=== PATIENT | female | born 1970 | race Caucasian/White ===

== ENCOUNTER 2019-02-19 21:53 | Inpatient (IN) | payer MEDICAID ==
[~2019-02-19] VITALS: Ht 154.9 cm; Wt 90.7 kg
[2019-02-19] MEDS ORDERED: ZANTAC300 MG PO (21:58)
[2019-02-19 22:29] LABS: APPEARANCE CLOUDY (CLEAR); COLOR YELLOW (YELLOW); NITRITE NEGATIVE (NEGATIVE); PROTEIN NEGATIVE (NEGATIVE); SPECIFIC GRAVITY 1.005 (1.005-1.020)
[2019-02-19 22:30] LABS: BILIRUBIN NEGATIVE (NEGATIVE); GLUCOSE 500 mg/dL (NEGATIVE); KETONE NEGATIVE (NEGATIVE); UROBILINOGEN NORMAL (NORMAL)
[2019-02-19 22:31] LABS: BACTERIA MODERATE /hpf (NONE SEEN); EPITHELIAL CELLS 0-5 /hpf (0-5); WHITE CELLS - URINE >50 /hpf (0-5)
[2019-02-19 22:33] LABS: HEMATOCRIT 40.9 % (36.0-48.0); HEMOGLOBIN 14.5 g/dL (12-16); LYMPHOCYTES 14.4 % (15-50); MCH 30.4 pg (26.0-34.0); MCHC 35.5 g/dL (31.0-37.0); MCV 85.7 fL (80.0-100.0); MEAN PLATELET VOLUME 10.8 fL (7.4-10.4); NEUTROPHILS 74.9 % (40-80); PLATELET COUNT 217 10x3/uL (130-400); RBC 4.77 10x6/uL (4.00-5.40); RDW 12.2 % (11.5-14.5); WBC 7.4 10x3/uL (4.8-10.8)
[2019-02-19 22:37] LABS: ALBUMIN 3.8 g/dL (3.4-5.0); ALKALINE PHOSPHATASE 283 U/L (46-116); ALT (SGPT) 77 U/L (10-68); AMYLASE - SERUM 25 U/L (25-115); BILIRUBIN - TOTAL 0.52 mg/dL (0.2-1.3); CALCIUM 10.1 mg/dL (8.5-10.1); CARBON DIOXIDE 27.6 mmol/L (21.0-32.0); CREATININE - SERUM 1.5 mg/dL (0.6-1.3); LIPASE 158 U/L (73-393); POTASSIUM - SERUM 4.2 mmol/L (3.5-5.1); PROTEIN - SERUM 8.2 g/dL (6.4-8.2); TROPONIN-I < 0.017 ng/mL (0.000-0.060); UREA NITROGEN 7 mg/dL (7-18); eGFR NON AFRICAN AMERICAN 39 mL/min (90-120)
[2019-02-19 22:38] LABS: SODIUM 120 mmol/L (136-145)
[2019-02-19 22:42] LABS: CHLORIDE - SERUM 82 mmol/L (98-107)
[2019-02-19 22:54] LABS: CALC OSMOLALITY 295 mosm/kg (275-300); GLUCOSE 1104 mg/dL (74-106)
--- NOTE | 2019-02-19 23:16 | NUR ---
PT GIVEN BLANKETS.
--- NOTE | 2019-02-20 00:13 | NUR ---
PT RESTING EYES CLOSED, RR EVEN AND UNLABORED, VSS. WILL CONTINUE TO MONITOR.
--- NOTE | 2019-02-20 02:00 | NUR ---
RECIEVED TO FLOOR, ACCOMPANIED BY HOSPITAL STAFF AND FAMILY. AMBULATES INDEPENDENTLY. ANSWERS QUESTIONS APPROPRIATELY. DENIES PAIN OR NAUSEA AT THIS TIME. VITAL SIGNS STABLE. PT REPORTS FREQUENT URINATION AND EXCESSIVE THIRST. DIET [place] BROUGHT PER REQUEST, WILL CONTINUE TO MONITOR.
[2019-02-20 02:44] VITALS: BP 142/87; BMI 37.8
[2019-02-20 04:00] VITALS: BP 142/87
--- NOTE | 2019-02-20 07:47 | NUR ---
AAOX4. ON ROOM AIR, C/O HEADACHE, BLOOD SUGARS Q4, IV TO LEFT AC PATENT, LACTATED RINGERS AT 100ML/HR, SPOUSE PRESENT IN ROOM, DENIES ANY OTHER NEEDS OR DISCOMFORTS, BED LOWERED AND LOCKED, CALL LIGHT WITHIN REACH. CPOC
[2019-02-20 08:16] LABS: BASOPHILS 0.6 % (0-2); HEMATOCRIT 38.6 % (36.0-48.0); HEMOGLOBIN 14.1 g/dL (12-16); IMMATURE GRANULOCYTES 0.2 % (0-5); MCH 30.3 pg (26.0-34.0); MCHC 36.5 g/dL (31.0-37.0); MEAN PLATELET VOLUME 10.4 fL (7.4-10.4); MONOCYTES 8.8 % (2-11); NEUTROPHILS 62.4 % (40-80); PLATELET COUNT 209 10x3/uL (130-400); RBC 4.65 10x6/uL (4.00-5.40); RDW 12.3 % (11.5-14.5)
[2019-02-20 08:22] LABS: WBC 9.4 10x3/uL (4.8-10.8)
[2019-02-20 08:35] LABS: ANION GAP 11.3 mmol/L (8-16); CALCIUM 9.4 mg/dL (8.5-10.1); CARBON DIOXIDE 32.9 mmol/L (21.0-32.0)
[2019-02-20 08:42] LABS: CREATININE - SERUM 0.9 mg/dL (0.6-1.3); POTASSIUM - SERUM 3.2 mmol/L (3.5-5.1)
[2019-02-20 09:42] LABS: MEAN PLASMA GLUCOSE 413 MG/DL (74-154)
[2019-02-20 09:49] VITALS: BP 129/70
[2019-02-20 13:33] VITALS: BMI 37.8
--- NOTE | 2019-02-20 13:41 | NUR ---
Nutrition Consult: Consult received for ADA diet education. Pt was nauseated at the time of RD visit and requested written material be left. RD offered to review info with pt but she appeared to be not interested in going over it. Spoke with nursing who stated that she felt pt was not interested in learning about diet, changes, etc at this time. RD encouraged pt to request outpatient ADA diet education also. Full Nutrition Assmt in Process Intervention. Will attempt diet education at a later time. Rec outpatient ADA diet eduction. RD following.
--- NOTE | 2019-02-20 15:11 | NUR ---
IN AND OUT CATH COMPLETED WITH 15 KYRGYZ. TOLERATED WELL. PERINEAL AREA CLEANED, BEFORE AND AFTER, DENIES ANY NEEDS OR DISCOMFORTS, BED LOWERED AND LOCKED, CALL LIGHT WITHIN REACH. CPOC
[2019-02-20 17:04] LABS: KETONE - SERUM NEGATIVE (NEGATIVE)
[2019-02-20 17:22] LABS: ALBUMIN 3.1 g/dL (3.4-5.0); ALKALINE PHOSPHATASE 239 U/L (46-116); ALT (SGPT) 71 U/L (10-68); BILIRUBIN - TOTAL 0.38 mg/dL (0.2-1.3); CALCIUM 8.5 mg/dL (8.5-10.1); CARBON DIOXIDE 29.2 mmol/L (21.0-32.0); CHLORIDE - SERUM 94 mmol/L (98-107); CREATININE - SERUM 0.9 mg/dL (0.6-1.3); POTASSIUM - SERUM 3.2 mmol/L (3.5-5.1); PROTEIN - SERUM 6.5 g/dL (6.4-8.2); SODIUM 135 mmol/L (136-145); UREA NITROGEN 10 mg/dL (7-18); eGFR NON AFRICAN AMERICAN 70 mL/min (90-120)
[2019-02-20 17:28] LABS: CALC OSMOLALITY 283 mosm/kg (275-300); GLUCOSE 372 mg/dL (74-106)
[2019-02-20 18:02] VITALS: BP 101/71
--- NOTE | 2019-02-20 18:56 | NUR ---
SPOKE WITH DR. SALINAS IN REGARDS TO MOST RECENT LABS, NO NEW ORDERS RECIEVED, ON ROOM AIR, IV IN LEFT AC LR AT 100ML/HR, DENIES ANY CURRENT NEEDS OR DISCOMFORTS, BED LOWERED AND LOCKED, CALL LIGHT WITHIN REACH.
[2019-02-20 19:53] VITALS: BP 113/74
[2019-02-21] VITALS: BP 95/65
--- NOTE | 2019-02-21 03:37 | NUR ---
I have reviewed this patient and I concur with the Shift Assessment completed by the Licensed Practical Nurse today this shift.
[2019-02-21 04:00] VITALS: BP 94/58
[2019-02-21 06:11] LABS: BASOPHILS 0.5 % (0-2); EOSINOPHILS 2.7 % (0-7); HEMATOCRIT 35.3 % (36.0-48.0); HEMOGLOBIN 12.5 g/dL (12-16); IMMATURE GRANULOCYTES 0.3 % (0-5); LYMPHOCYTES 31.4 % (15-50); MCH 30.3 pg (26.0-34.0); MCHC 35.4 g/dL (31.0-37.0); MEAN PLATELET VOLUME 10.9 fL (7.4-10.4); MONOCYTES 7.1 % (2-11); RBC 4.12 10x6/uL (4.00-5.40); RDW 12.3 % (11.5-14.5); WBC 7.6 10x3/uL (4.8-10.8)
[2019-02-21 06:18] LABS: MCV 85.7 fL (80.0-100.0); PLATELET COUNT 167 10x3/uL (130-400)
[2019-02-21 06:26] LABS: CALCIUM 8.6 mg/dL (8.5-10.1); CARBON DIOXIDE 29.4 mmol/L (21.0-32.0); CHLORIDE - SERUM 99 mmol/L (98-107); CREATININE - SERUM 0.7 mg/dL (0.6-1.3); MAGNESIUM - SERUM 1.8 mg/dL (1.8-2.4); PHOSPHOROUS 3.3 mg/dL (2.5-4.9); SODIUM 136 mmol/L (136-145); UREA NITROGEN 9 mg/dL (7-18); eGFR NON AFRICAN AMERICAN > 90 mL/min (90-120)
[2019-02-21 06:32] LABS: CALC OSMOLALITY 282 mosm/kg (275-300); GLUCOSE 308 mg/dL (74-106)
[2019-02-21 06:33] LABS: POTASSIUM - SERUM 2.8 mmol/L (3.5-5.1)
--- NOTE | 2019-02-21 08:01 | NUR ---
AAOX4. ON ROOM AIR, IV PATENT TO LEFT AC, INFUSING LACTATED RINGERS AT 100ML/HR. DENIES ANY CURRENT NEEDS OR DISCOMFORTS, BED LOWERED AND LOCKED, CALL LIGHT WITHIN REACH. CPOC
[2019-02-21 09:34] VITALS: BP 116/69
[2019-02-21 13:09] VITALS: BP 144/97
--- NOTE | 2019-02-21 14:31 | NUR ---
Nutrition follow up: Reviewed carbohydrate counting and meal planning Answered questions about diabetic diet Recommend pt lose weight and increase physical activity after discharge Recommend three meal per day with 50gm CHO each meal and protein with each meal. Recommend pt follow up with the outpatient dietitian after discharge RD Following
[2019-02-21 16:26] VITALS: BP 117/68
[2019-02-21 19:52] VITALS: BP 105/55
--- NOTE | 2019-02-21 20:00 | NUR ---
FSBS 378 10 UNITS OF INSULIN GIVEN PER SS.
--- NOTE | 2019-02-22 | NUR ---
FSBS 376 10 UNITS OF INSULIN GIVEN PER SS.
--- NOTE | 2019-02-22 01:31 | NUR ---
I have reviewed this patient and I concur with the Shift Assessment completed by the Licensed Practical Nurse today this shift.
[2019-02-22 04:00] VITALS: BP 116/58
--- NOTE | 2019-02-22 04:00 | NUR ---
FSBS 313 8 UNITS OF INSULIN GIVEN PER SS.
[2019-02-22 05:26] LABS: BASOPHILS 0.5 % (0-2); EOSINOPHILS 2.6 % (0-7); HEMATOCRIT 33.9 % (36.0-48.0); HEMOGLOBIN 11.6 g/dL (12-16); IMMATURE GRANULOCYTES 0.2 % (0-5); LYMPHOCYTES 38.6 % (15-50); MCH 29.5 pg (26.0-34.0); MCHC 34.2 g/dL (31.0-37.0); MCV 86.3 fL (80.0-100.0); MONOCYTES 6.7 % (2-11); NEUTROPHILS 51.4 % (40-80); PLATELET COUNT 153 10x3/uL (130-400); RBC 3.93 10x6/uL (4.00-5.40); RDW 12.2 % (11.5-14.5); WBC 6.1 10x3/uL (4.8-10.8)
[2019-02-22 05:48] LABS: ALBUMIN 2.5 g/dL (3.4-5.0); ALKALINE PHOSPHATASE 187 U/L (46-116); ALT (SGPT) 84 U/L (10-68); BILIRUBIN - TOTAL 0.36 mg/dL (0.2-1.3); CALC OSMOLALITY 284 mosm/kg (275-300); CALCIUM 8.6 mg/dL (8.5-10.1); CARBON DIOXIDE 29.1 mmol/L (21.0-32.0); CHLORIDE - SERUM 103 mmol/L (98-107); CREATININE - SERUM 0.7 mg/dL (0.6-1.3); GLUCOSE 287 mg/dL (74-106); PROTEIN - SERUM 5.8 g/dL (6.4-8.2); SODIUM 138 mmol/L (136-145); UREA NITROGEN 10 mg/dL (7-18); eGFR NON AFRICAN AMERICAN > 90 mL/min (90-120)
[2019-02-22 05:52] LABS: POTASSIUM - SERUM 3.4 mmol/L (3.5-5.1)
--- NOTE | 2019-02-22 08:29 | NUR ---
AAOX4. ON ROOM AIR, IV TO RIGHT HAND, PATENT, SALINE LOCKED, DENIES ANY CURRENT NEEDS OR DISCOMFORTS, BED LOWERED AND LOCKED, CALL LIGHT WITHIN REACH. CPOC
[2019-02-22 09:03] VITALS: BP 108/67
[2019-02-22 12:40] VITALS: BP 105/67
[2019-02-22 17:09] VITALS: BP 126/49
--- NOTE | 2019-02-22 19:25 | NUR ---
ALERT ORIENTED. DISCUSSED DIABETIC TEACHINGS WITH PATIENT. PATIENT ADMITS THAT SHE IS POSITIVE ABOUT LIFESTYLE CHANGES AND UNDERSTANDS NEEDS FOR INSULIN BY HAS CONCERNS ABOUT ADMINISTERING TO SELF. THIS NURSE WILL HELP PT WITH INSULIN ADMINISTRATION TEACHINGS.
[2019-02-22 20:00] VITALS: BP 101/57
--- NOTE | 2019-02-22 20:30 | NUR ---
INSTRUCTED PT ON HOW TO USE GLUCOMETERS AND THAT ONE SHE ACQUIRES POST DC WILL MOST LIKELY BE DIFFERENT. PT PROVIDED RETURN DEMONSTRATIONS ON CLEAN TECHNIQUE AND PRICKING OF FINGER AND OBTAINING BLOOD SAMPLE. PT USED INTERMITTENET SCALE TO DETERMINE 10 UNITS OF INSULIN WAS NEEDED FOR READING OF 301. HAD PT CHECK DATE OF INSULIN AND EXPLAINED EXPIRATION DATES. PT STATES UNDERSTANDING AND THEN PROVIDED RETURN DEMONSTRATION OF HOW TO DRAW BACK INSULIN. PT THEN ASKED THIS NURSE TO TAKE OVER WHEN ACTUALLY ADMINISTERING SHOT. PT STATES "I AM GOOF WITH PRICKING MY FINGER AND EVERYTHING UP UNTIL ACTUALLY GIVING MYSELF THE SHOT. IT MAKES MY STOMACH TURN." THIS NURSE PROVIDED PATIENT WITH ALTERNATIVES MEASURES AND DEVICES TO LOOK UP IF SHE IS UNABLE TO ADMINISTER OWN INSULIN. PT VERY RECEPTIVE TO TEACHINGS. PROVIDED TYLENOL FOR HEADACHE. DENIES FURTHER PAIN. IV TO THE RIGHT HADN INFUSING LR @ 100. CALL LIGHT IN REACH.
--- NOTE | 2019-02-23 02:13 | NUR ---
I have reviewed this patient and I concur with the Shift Assessment completed by the Licensed Practical Nurse today this shift.
[2019-02-23 03:00] VITALS: BP 92/54
[2019-02-23 06:00] LABS: BASOPHILS 0.6 % (0-2); EOSINOPHILS 3.3 % (0-7); HEMATOCRIT 37.4 % (36.0-48.0); HEMOGLOBIN 12.8 g/dL (12-16); IMMATURE GRANULOCYTES 0.4 % (0-5); LYMPHOCYTES 38.4 % (15-50); MCH 29.7 pg (26.0-34.0); MCHC 34.2 g/dL (31.0-37.0); MCV 86.8 fL (80.0-100.0); MONOCYTES 5.8 % (2-11); NEUTROPHILS 51.5 % (40-80); RBC 4.31 10x6/uL (4.00-5.40); RDW 12.4 % (11.5-14.5)
[2019-02-23 06:27] LABS: ALBUMIN 2.9 g/dL (3.4-5.0); ALKALINE PHOSPHATASE 198 U/L (46-116); ALT (SGPT) 102 U/L (10-68); BILIRUBIN - TOTAL 0.36 mg/dL (0.2-1.3); CALC OSMOLALITY 282 mosm/kg (275-300); CALCIUM 8.9 mg/dL (8.5-10.1); CHLORIDE - SERUM 103 mmol/L (98-107); CREATININE - SERUM 0.7 mg/dL (0.6-1.3); GLUCOSE 285 mg/dL (74-106); POTASSIUM - SERUM 3.9 mmol/L (3.5-5.1); PROTEIN - SERUM 6.6 g/dL (6.4-8.2); SODIUM 137 mmol/L (136-145); UREA NITROGEN 11 mg/dL (7-18); eGFR NON AFRICAN AMERICAN > 90 mL/min (90-120)
[2019-02-23 06:45] LABS: PLATELET COUNT 186 10x3/uL (130-400); WBC 7.9 10x3/uL (4.8-10.8)
[2019-02-23 08:46] VITALS: BP 110/62
[2019-02-23 12:30] VITALS: BP 114/63
[2019-02-23 17:01] VITALS: BP 136/76
--- NOTE | 2019-02-23 20:00 | NUR ---
FSBS 323 20 UNITS OF INSULING GIVEN PER SS.
[2019-02-23 21:31] VITALS: BP 122/76
--- NOTE | 2019-02-24 | NUR ---
FSBS 248 12 UNITS OF INSULIN GIVEN PER SS.
--- NOTE | 2019-02-24 04:00 | NUR ---
FSBS 149 NO COVERAGE NEEDED AT THIS TIME PER SS.
[2019-02-24 05:03] VITALS: BP 98/56
[2019-02-24 05:52] LABS: BASOPHILS 0.6 % (0-2); EOSINOPHILS 2.8 % (0-7); HEMOGLOBIN 12.5 g/dL (12-16); IMMATURE GRANULOCYTES 0.6 % (0-5); LYMPHOCYTES 31.3 % (15-50); MCH 29.6 pg (26.0-34.0); MCHC 33.8 g/dL (31.0-37.0); MCV 87.5 fL (80.0-100.0); MEAN PLATELET VOLUME 11.4 fL (7.4-10.4); MONOCYTES 9.6 % (2-11); NEUTROPHILS 55.1 % (40-80); PLATELET COUNT 193 10x3/uL (130-400); RBC 4.23 10x6/uL (4.00-5.40); RDW 12.7 % (11.5-14.5); WBC 8.1 10x3/uL (4.8-10.8)
--- NOTE | 2019-02-24 05:58 | NUR ---
I have reviewed this patient and I concur with the Shift Assessment completed by the Licensed Practical Nurse today this shift.
[2019-02-24 06:21] LABS: ALBUMIN 3.1 g/dL (3.4-5.0); ALKALINE PHOSPHATASE 185 U/L (46-116); ALT (SGPT) 100 U/L (10-68); BILIRUBIN - TOTAL 0.27 mg/dL (0.2-1.3); CALC OSMOLALITY 280 mosm/kg (275-300); CALCIUM 9.1 mg/dL (8.5-10.1); CARBON DIOXIDE 26.5 mmol/L (21.0-32.0); CHLORIDE - SERUM 104 mmol/L (98-107); CREATININE - SERUM 0.8 mg/dL (0.6-1.3); POTASSIUM - SERUM 3.9 mmol/L (3.5-5.1); PROTEIN - SERUM 6.7 g/dL (6.4-8.2); SODIUM 139 mmol/L (136-145); UREA NITROGEN 10 mg/dL (7-18); eGFR NON AFRICAN AMERICAN 80 mL/min (90-120)
[2019-02-24 06:28] LABS: GLUCOSE 164 mg/dL (74-106)
--- NOTE | 2019-02-24 07:52 | NUR ---
PT IS SITTING IN BED WITH EYES OPEN. RESPIRATIONS ARE EVEN AND UNLABORED. PT DENIES PRESENCE OF PAIN AND/OR N/V AT THIS TIME. PT DENIES FURTHER NEEDS AT THIS TIME. BED IS IN THE LOWEST POSITION. CALL LIGHT AND BEDSIDE TABLE ARE WITHIN REACH. SIDE RAILS X 2. WILL CONT TO MONITOR.
[2019-02-24 08:43] VITALS: BP 104/61
--- NOTE | 2019-02-24 14:09 | MORECARE ---
CASE MANAGEMENT DISCHARGE SUMMARY PATIENT: JASWINDER GUAN UNIT: [id number] ADM DATE: 02/20/19 AGE: 48 : 66 SEX: F ROOM/BED: D.[facility] AUTHOR: LUX LOVE PHYSICIAN: REFERRING PHYSICIAN: JUANCARLOS SALINAS MD DATE OF SERVICE: 02/24/19 Discharge Plan Patient Name: JASWINDER GUAN [facility] [facility] 1970 Planned Disposition: Home Anticipated Discharge Date: Discharge Date: Expected LOS: Initial Reviewer: [email or web address] Initial Review Date: 02/24/2019 Generated: 02/24/19 3:09 pm DCPIA - Discharge Planning Initial Assessment Updated by [email or web address]: Oumou Harper on 02/24/19 2:06 pm * Is the patient Alert and Oriented? Yes * How many steps to enter\exit or inside your home? 2/0 * PCP None * Pharmacy [facility] [address] * Preadmission Environment Home with Family * ADLs Independent * Equipment None * List name and contact numbers for known caregivers / representatives who currently or will assist patient after discharge: Mario Alberto Ribeiro - [facility] - [phone] Gela rivero?e - [phone] * Verbal permission to speak to the caregivers and representatives has been obtained from the patient. Yes * Community resources currently utilized None * Additional services required to return to the preadmission environment? Yes * Can the patient safely return to the preadmission environment? Yes * Has this patient been hospitalized within the prior 30 days at any hospital? No Patient Name: JASWINDER GUAN Page [id number] at 1409 All edits/amendments must be made on the electronic document DICTATION DATE: 02/24/191407 MOSAIC TILE MAKER: JUANA 02/24/191407 RPT#: [id number] DC DATE: STATUS: ADM IN [facility] [address] [place] [address] END OF REPORT
[2019-02-24 14:40] VITALS: BP 101/70
[2019-02-24] MEDS ORDERED: GLUCOPHAGE500 MG PO (15:36)
[2019-02-24] MEDS ORDERED: LANTUS INSULIN10 ML SC (15:37)
[2019-02-24] MEDS ORDERED: HUMULIN R100 U/ML SC (15:42)
[2019-02-24] MEDS ORDERED: DIFLUCAN150 MG PO ×3 (15:43→16:00)
[2019-02-24 16:07] VITALS: Ht 154.9 cm; Wt 90.7 kg
--- NOTE | 2019-02-24 16:35 | NUR ---
PIV REMOVED WITH CATHETER TIP INTACT. DRESSING APPLIED. DISCHARGE INSTRUCTIONS COVERED WITH PT AND PT SON. PT EDUCATED ON INSULIN AND ADMINISTRATION OF INSULIN. PT ABLE TO GIVE PROPER DEMONSTRATION OF INSULIN ADMINISTRATION VIA SYRINGE AND PEN. PT AND PT SON DENY FURTHER QUESTIONS AND/OR CONCERNS AT THIS TIME. ALL RX GIVEN TO PT. PT REFUSES WHEELCHAIR FOR TRANSPORTATION OUT OF ROOM. PT STATES THAT SHE WILL WALK.
--- NOTE | 2019-02-24 16:42 | MORECARE ---
CASE MANAGEMENT DISCHARGE SUMMARY PATIENT: JASWINDER GUAN UNIT: [id number] ADM DATE: 02/20/19 AGE: 48 : 66 SEX: F ROOM/BED: D.2236 AUTHOR: LUX LOVE PHYSICIAN: REFERRING PHYSICIAN: JUANCARLOS SALINAS MD DATE OF SERVICE: 02/24/19 Discharge Plan Patient Name: JASWINDER GUAN Facility: [facility]:[place] : 1970 Planned Disposition: Home Anticipated Discharge Date: Discharge Date: Expected LOS: Initial Reviewer: [email or web address] Initial Review Date: 02/24/2019 Generated: 02/24/19 5:42 pm Comments DCP- Discharge Planning Updated by [email or web address]: Sondra Rodriguez on 02/24/19 3:[address] Patient being discharged today, coupons for insulin given to patient. Patient educated on to call the company and apply for financial aide. a glucometer was given to the patient also a script for strips. DCP- Discharge Planning Updated by [email or web address]: Oumou Harper on 02/24/19 1:[address] Patient Name: JASWINDER GUAN Admission Status: ER Accout number: [id number] Admission Date: 02-20-2019 : 1970 Admission Diagnosis:NAUSEA WITH VOMITING, UNSPECIFIED Attending: JAKI SALINAS Current LOS: 4 Anticipated DC Date: Planned Disposition: Home Primary Insurance: MEDICAID [place] Discharge Planning Comments:CM met with patient to complete initial dc planning assessment. CM educated patient on the CM role and verbal consent given by patient to complete assessment. Patient lives at home, states her fianc?e lives there most of the time. At discharge patient plans to return and feels this is a safe discharge. CM discussed availability of home health, rehab services, and medical equipment. I provided her with a glucometer and informed her she will need a RX for strips and lancets. I instructed her when she received her Medicaid approval in the mail to go on line and choose a physician in her county. She states she may need help with getting her Rx filled. I informed her about [employer] for coupons and I will also see what Rx she will be sent home on and try and get her some assistance. CM will continue to follow and will assist as needed with dc plans/needs. Assembler Mechanical Ordnance: Oumou Harper DCPIA - Discharge Planning Initial Assessment Updated by [email or web address]: Oumou Harper on 02/24/19 2:06 pm * Is the patient Alert and Oriented? Yes * How many steps to enter\exit or inside your home? 2/0 * PCP None * [facility] [address] * Preadmission Environment Home with Family * ADLs Independent * Equipment None * List name and contact numbers for known caregivers / representatives who currently or will assist patient after discharge: Mario Alberto Ribeiro - son - [phone] Guzmankindra [place] Leo rivero?e - [phone] * Verbal permission to speak to the caregivers and representatives has been obtained from the patient. Yes * Community resources currently utilized None * Additional services required to return to the preadmission environment? Yes * Can the patient safely return to the preadmission environment? Yes * Has this patient been hospitalized within the prior 30 days at any hospital? No Last DP export: 02/24/19 1:09 p Patient Name: JASWINDER GUAN Page [id number] at 1642 All edits/amendments must be made on the electronic document DICTATION DATE: 02/24/191641 APPEALS OFFICER: JUANA 02/24/191641 RPT#: [id number] DC DATE: STATUS: ADM IN [facility] [address] [place] [address] END OF REPORT
== END 2019-02-24 17:18 | disposition home or self-care (01) | DRG 638 ==
LOC: D.ER 21:53 → D.MS 02-20 01:05
PROVIDERS: Family Medicine; Internal Medicine Nephrology; ADMIT Emergency Medicine; ATTEND Emergency Medicine
DX: E11.69 Type 2 diabetes mellitus with other specified complication (principal); E87.1 Hypo-osmolality and hyponatremia; N39.0 Urinary tract infection, site not specified; E86.0 Dehydration; E87.8 Other disorders of electrolyte and fluid balance, not elsewhere classified; N17.9 Acute kidney failure, unspecified

== ENCOUNTER 2019-07-30 14:16 | Emergency (ER) | payer MEDICAID ==
[~2019-07-30] VITALS: Ht 154.9 cm; Wt 95.5 kg
[~2019-07-30 14:16] MED LIST: DIFLUCAN150 MG PO; GLUCOPHAGE500 MG PO; HUMULIN R100 U/ML SC; LANTUS INSULIN10 ML SC; ZANTAC300 MG PO
[2019-07-30 14:18] VITALS: Ht 154.9 cm; Wt 95.5 kg
[2019-07-30 15:36] LABS: INR 0.96 (0.85-1.17); PROTIME 12.3 SECONDS (11.6-15.0)
[2019-07-30 15:37] LABS: CALC OSMOLALITY 277 mosm/kg (275-300); CALCIUM 9.2 mg/dL (8.5-10.1); CARBON DIOXIDE 30.2 mmol/L (21.0-32.0); CHLORIDE - SERUM 104 mmol/L (98-107); CREATININE - SERUM 0.8 mg/dL (0.6-1.3); POTASSIUM - SERUM 3.9 mmol/L (3.5-5.1); SODIUM 140 mmol/L (136-145); UREA NITROGEN 11 mg/dL (7-18); eGFR NON AFRICAN AMERICAN 80 mL/min (90-120)
[2019-07-30 15:41] LABS: BASOPHILS 0.5 % (0-2); EOSINOPHILS 1.8 % (0-7); GLUCOSE 90 mg/dL (74-106); HEMATOCRIT 42.1 % (36.0-48.0); HEMOGLOBIN 13.9 g/dL (12-16); IMMATURE GRANULOCYTES 0.4 % (0-5); LYMPHOCYTES 24.6 % (15-50); MCH 29.7 pg (26.0-34.0); MEAN PLATELET VOLUME 9.9 fL (7.4-10.4); MONOCYTES 6.1 % (2-11); NEUTROPHILS 66.6 % (40-80); RBC 4.68 10x6/uL (4.00-5.40); RDW 13.4 % (11.5-14.5); WBC 10.9 10x3/uL (4.8-10.8)
[2019-07-30 15:42] LABS: PLATELET COUNT 249 10x3/uL (130-400)
[2019-07-30 15:52] LABS: ALBUMIN 3.8 g/dL (3.4-5.0); ALKALINE PHOSPHATASE 111 U/L (46-116); ALT (SGPT) 23 U/L (10-68); BILIRUBIN - TOTAL 0.31 mg/dL (0.2-1.3); CKMB 0.1 U/L (0.0-3.6); CREATINE KINASE 55 UL (21-215); MAGNESIUM - SERUM 1.9 mg/dL (1.8-2.4); PROTEIN - SERUM 8.1 g/dL (6.4-8.2); TROPONIN-I < 0.017 ng/mL (0.000-0.060)
[2019-07-30 16:38] VITALS: BP 130/77
== END 2019-07-30 16:40 | disposition home or self-care (01) ==
LOC: D.ER 14:16
PROVIDERS: Family Medicine
DX: M19.012 Primary osteoarthritis, left shoulder (principal)